=== PATIENT | male | born 1980 | race Caucasian/White ===

== ENCOUNTER → 2019-04-29 | Outpatient (CLI) | payer BC, OTHER ==
[~2019-04-29] MED LIST: ALEVE220 MG PO; APAP500 PO; BACTRIM DS TAB1 EACH PO; HYDROCODON-ACE1 EAC8 PO; IMITREX5 MG NASAL; KEFLEX500 MG PO; MOBIC15 MG PO; PERCOCET 5-3251 EACH PO; PERCOCET PO; TOPAMAX 25 MG T25 M1 PO
== END ==
LOC: CAT 15:45
DX: R10.9 Unspecified abdominal pain (principal)